=== PATIENT | female | born 1980 | race Caucasian/White ===

== ENCOUNTER 2020-08-06 12:33 | Emergency (ER) | payer OTHER ==
[~2020-08-06] VITALS: Ht 157.5 cm; Wt 84.4 kg
[2020-08-06] MEDS ORDERED: DOLOGEN CAPLET1 EACH PO (19:52)
== END 2020-08-06 20:01 | disposition home or self-care (01) ==
LOC: ER 12:33
DX: M79.604 Pain in right leg (principal)